=== PATIENT | male | born 1955 | race Caucasian/White ===

== ENCOUNTER 2023-08-30 08:08 | Day surgery (SDC) | payer MEDICARE, OTHER, SELFPAY ==
[2023-08-28 08:27] VITALS: BMI 22.5
[2023-08-30 08:30] VITALS: BP 115/74; PULSE 48; RESP 16; TEMP 36.2; O2SAT 100; BMI 21.4
[2023-08-30] MEDS: LACTATED RINGERS 1,000 ML 42 ML IV (08:50)
[2023-08-30] MEDS: ACETAMINOPHEN 325 MG TABLET 975 MG PO (08:52)
--- NOTE | 2023-08-30 09:02 | P.HP_ITS ---
History of Present Illness History of Present Illness Date Patient Seen: 08/30/23 Time Patient Seen: 09:02 Chief complaint: SDC Narrative: 68 year old gentleman with a chronic history of a recurrent infection involving the right middle finger. This has been treated with multiple courses of oral antibiotics but always seems to resolve the infection but it continues to back over time. Due to this fact patient is interested in surgical treatment. [facility] Medical History Paronychia of finger of left hand Surgical History H/O vasectomy Hx of tonsillectomy Social History household members: spouse Smoking Status: Never smoker alcohol intake: current Meds Home Medications and Allergies Allergies Allergy/AdvReac Type Severity Reaction Status Date / Time No Known Drug Allergies Allergy Verified 08/30/23 08:21 Exam Vital Signs (past 8 hours): - 08/30/23 08:30 Temperature 97.2 F L Pulse Rate 48 L Respiratory Rate 16 Blood Pressure 115/74 Pulse Oximetry 100 Oxygen Delivery Method Room Air Oxygen Delivery Method Room Air Narrative Exam Narrative: On exam, patient has some swelling at the nail fold to the left middle finger. No sign of any obvious infectious process. No purulence or drainage. But it is tender to palpation. Full range of motion at the D IP joint. Assessment & Plan Assessment & Plan narrative: Chronic subacute infection to the left middle finger soft tissue with no sign of any bony involvement. Patient is interested in irrigation and debridement of his left middle finger. The risk, benefits, alternatives, possible complications, operative course, and postop outcomes were discussed. Complications including but not limiting to bleeding, infection, fracture, nerve injury, continued pain postoperatively or instability postoperatively were discussed in detail. Medical complications including but not limited to deep venous thrombosis event, anesthesia complications with excessive bleeding, vascular events or cardiac events and other possible complications were discussed in detail. Need for postoperative rehabilitation and anticipated hospital stay and clinical course were discussed in detail. Patient acknowledges understanding and elects to proceed with surgery.
--- NOTE | 2023-08-30 09:05 | PM.PREOP ---
Pre-operative Note Interval Note History & Physical reviewed/Exam performed by Physician: Yes Changes to H&P: No
[2023-08-30] MEDS: CEFAZOLIN 2 GM/100 ML PREMIX 100 ML IV (09:50)
--- NOTE | 2023-08-30 09:51 | SUR.OPER ---
Supine on padded OR bed, head on pillow, arms secured on padded arm boards at <90 degrees abduction, legs uncrossed, safety belt at thigh, tape over blanket over lower legs.
[2023-08-30] MEDS: BUPIVACAINE 0.25% (PF) 30 ML, EPINEPHrine 0.15 MG INJ (10:05)
[2023-08-30 10:07] VITALS: BP 92/58; PULSE 47; RESP 16; TEMP 35.9; O2SAT 98
--- NOTE | 2023-08-30 10:07 | PM.OP.1 ---
Operative Date/Time/Diagnoses Date of procedure: 08/30/23 Time of procedure: 09:30 Pre-op diagnosis: Left middle finger infection Post-op diagnosis: same Procedure & Clinicians Procedure: Irrigation and debridement left middle finger Same procedure as scheduled: Yes Indications: Left middle finger infection Surgeon: Barry Bentley Click Yes if Unassisted: Yes Anesthesia Type: General Operative Notes Findings: Small pocket of purulence right at the nail fold of the left middle finger. Superficial with no sign of any involvement of the distal phalanx Closure Type: primary Specimen(s): other (Culture swabs and soft tissue sent for cultures and sensitivities.) Estimated Blood Loss (mL): 0 Tourniquet time (min): 7 Procedure in detail: On date of service, patient was met in the holding area where his operative site was signed and witnessed by the OR staff. Surgeries once again discussed with the patient and any remaining questions or concerns he had were answered fully. Patient was taken back to the operating theater placed on the operating table in a supine position. Great care was taken to ensure that all bony prominences were appropriately padded and a well-padded tourniquet was placed up along the upper extremity. Time-out was performed verifying patient's name, procedure, and operative site. Left arm was prepped and draped in the normal sterile fashion and an Esmarch was used for exsanguination and the tourniquet was turned up to 250 mmHg. Longitudinal incision was made starting at the nail fold going down to the D IP joint. There was a small pocket of purulence and this was swabbed using a culture swab and sent to microbiology. Fifteen blade was then used to continue to expose the soft tissue below the skin. Combination of rongeur and curette was then used to sharply debride the surrounding area and this soft tissue was then sent as well to microbiology. Fifteen blade was also used to sharply excise any potential concerning tissue to be sent for further evaluation. Once we felt that we had fully debrided the area of concern, 500 mm of normal saline was used to adequately irrigate the wound bed. This was followed by loose closure with 5 0 nylon. Finger was cleaned, dried, dressed and patient was taken to the PACU in stable condition. Complications: none Post-operative Condition: stable Disposition: same day surgery Plan for aftercare: No restrictions of range of motion. No lifting more than 2-3 lb for the next 2 weeks.
[2023-08-30 10:12] VITALS: BP 99/77; PULSE 48; RESP 16; TEMP 36.8; O2SAT 98
[2023-08-30 10:16] VITALS: BP 87/49; PULSE 46; RESP 16; TEMP 35.9; O2SAT 99
[2023-08-30 10:28] VITALS: BP 125/65; PULSE 48; RESP 16; TEMP 36.2; O2SAT 98
== END 2023-08-30 10:46 | disposition home or self-care (01) ==
PROVIDERS: PCP Family Medicine; Referring Provider Orthopaedic Surgery; Visit Provider Orthopaedic Surgery
PROC: (CPT 10060; principal; 2023-08-30 09:15)
DX: L03.012 Cellulitis of left finger (principal)
CPT/HCPCS: 10060; 87070; 87075; 87077; 87147; 87186; 87205; J0171; J0690; J2405; J2704; J3010